=== PATIENT | female | born 1965 | race African-American/Black ===

== ENCOUNTER 2019-06-03 22:39 | Emergency (ER) | payer SELFPAY ==
[~2019-06-03] VITALS: Ht 157.5 cm; Wt 53.2 kg
[2019-06-03] MEDS ORDERED: DOXY100C PO (22:49)
[2019-06-04] MEDS ORDERED: MORPHINE SULFATE 15 MG IR TABLET PO ONE (00:45)
[2019-06-04] MEDS ORDERED: ACETAMINOPHEN 325 MG TABLET PO ONE (01:15)
[2019-06-04] MEDS ORDERED: IBUPROFEN 400 MG TABLET PO ONE (01:15)
[2019-06-04 01:33] LABS: BASOPHILS % (AUTO) 0.3 % (0.0-2.0); EOSINOPHILS % (AUTO) 0 % (1.0-6.0); HEMATOCRIT 37.8 % (36-46); HEMOGLOBIN 12.8 g/dL (12.0-16.0); LYMPHOCYTES # (AUTO) 1.1 K/uL (1.0-4.8); LYMPHOCYTES % (AUTO) 10.1 % (22.0-44.0); MEAN CORPUSCULAR HEMOGLOBIN 31.2 pg (26.0-34.0); MEAN CORPUSCULAR HGB CONC 33.8 G/dL (31.0-37.0); MEAN CORPUSCULAR VOLUME 92 fL (80-100); MONOCYTES # (AUTO) 0.7 K/uL (0.1-1.0); MONOCYTES % (AUTO) 6.1 % (2.0-9.0); NEUTROPHILS # (AUTO) 9.1 K/uL (1.8-7.7); NEUTROPHILS % (AUTO) 83.5 % (40.0-70.0); PLATELET COUNT (AUTO) 210 K/uL (150-450); RED BLOOD CELL COUNT(AUTO) 4.09 MIL/uL (4.00-5.20); RED CELL DISTRIBUTION WIDTH 13.4 % (11.5-14.5)
[2019-06-04 01:43] LABS: ANION GAP 11 mmol/L (8-16); CALCIUM, TOTAL 9.7 mg/dL (8.8-10.5); CARBON DIOXIDE 25 mmol/L (22-29); CHLORIDE 101 mmol/L (98-107); CREATININE 0.79 mg/dL (0.60-1.30); GLOMERULAR FILTR. RATE CALC > 60 mL/min (>60); GLUCOSE,RANDOM 124 mg/dL (70-110); POTASSIUM 3.7 mmol/L (3.5-5.1); SODIUM SERUM 137 mmol/L (136-145); UREA NITROGEN, BLOOD 11 mg/dL (7-18)
[2019-06-04 01:49] LABS: ALANINE AMINOTRANSFERASE 24 U/L (12-78); ALBUMIN 4.1 g/dL (3.4-5.0); ALKALINE PHOSPHATASE 76 U/L (46-116); ASPARTATE AMINOTRANSFERASE 22 U/L (15-37); BILIRUBIN,TOTAL 0.5 mg/dL (0.1-1.0); C-REACTIVE PROTEIN QUANT 2.94 mg/dL (0.00-0.30); TOTAL PROTEIN, SERUM 8.7 g/dL (6.4-8.2)
[2019-06-04 02:54] VITALS: BP 115/87
[2019-06-04 02:56] LABS: ERYTHROCYTE SEDIMENTATION RATE 80 MM/HR (0-20)
[2019-06-04] MEDS ORDERED: OxyCODONE HCL 5 MG IR TABLET PO ONE (03:00)
== END 2019-06-04 03:20 | disposition home or self-care (01) ==
LOC: EMS 22:41
DX: M79.641 Pain in right hand (principal); M79.642 Pain in left hand; A53.9 Syphilis, unspecified; Z90.710 Acquired absence of both cervix and uterus; Z79.899 Other long term (current) drug therapy
CPT/HCPCS: 85651; 86140

== ENCOUNTER 2025-06-19 20:21 | Emergency (ER) | payer BC ==
[~2025-06-19] VITALS: Ht 157.5 cm; Wt 53.1 kg
[~2025-06-19 20:21] MED LIST: DOXY100C PO
[2025-06-19 20:46] VITALS: TEMP 97.9
[2025-06-19 21:13] LABS: PLATELET COUNT (AUTO) 215 K/uL (150-450); RED BLOOD CELL COUNT(AUTO) 4.28 MIL/uL (4.00-5.20); RED CELL DISTRIBUTION WIDTH 13.4 % (11.5-14.5); WHITE BLOOD COUNT (AUTO) 5.7 K/uL (4.5-11.0)
[2025-06-19 21:18] LABS: CALCIUM, TOTAL 9.2 mg/dL (8.8-10.5); CREATININE 0.67 mg/dL (0.60-1.30); GLOMERULAR FILTR. RATE CALC > 60 mL/min (>60); GLUCOSE,RANDOM 95 mg/dL (70-110); SODIUM SERUM 142 mmol/L (136-145); UREA NITROGEN, BLOOD 12 mg/dL (7-18)
[2025-06-19 21:27] LABS: TROPONIN I-HIGH SENSITIVITY 9 ng/L (<51)
[2025-06-20 00:18] VITALS: BP 157/103; PULSE 74; RESP 18; O2SAT 99
== END 2025-06-20 01:21 | disposition home or self-care (01) ==
LOC: EMS 20:27
DX: M06.9 Rheumatoid arthritis, unspecified (principal); R07.89 Other chest pain; Z90.710 Acquired absence of both cervix and uterus; Z86.19 Personal history of other infectious and parasitic diseases; Z98.890 Other specified postprocedural states
CPT/HCPCS: 71045; 80048; 84484; 85025; 93005; 99285; 36415-L1; 36415-TC